=== PATIENT | female | born 1965 | race American Indian/Alaskan Native ===

== ENCOUNTER 2017-08-18 03:33 | Emergency (ER) | payer OTHER ==
[2017-08-18 03:34] VITALS: BMI 25.2
[2017-08-18 03:44] VITALS: RESP 18; TEMP 98.1; O2SAT 100
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
[2017-08-18 05:27] VITALS: BP 125/87; PULSE 85
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
== END 2017-08-18 05:25 | disposition home or self-care (01) ==
LOC: ED 03:33
DX: M54.2 Cervicalgia (principal); M54.5 Low back pain; V43.52XA Car driver injured in collision with other type car in traffic accident, initial encounter; Y92.410 Unspecified street and highway as the place of occurrence of the external cause
CPT/HCPCS: 70450; 72100; 72125; 96372; 99284; J1885